=== PATIENT | female | born 1980 | race Caucasian/White ===

== ENCOUNTER 2018-02-24 01:41 | Emergency (ER) | payer OTHER ==
[~2018-02-24] VITALS: Ht 165.1 cm; Wt 67.2 kg
[2018-02-24 01:53] VITALS: Ht 165.1 cm; Wt 67.2 kg
[2018-02-24 02:51] LABS: BASOPHIL % 0.1 % (0-2); PLATELET COUNT 231 x10^3mcL (130-400)
[2018-02-24 02:54] LABS: CALCIUM 8.5 mg/dL (8.5-10.1); CARBON DIOXIDE 27.2 mmol/L (21-32); CREATININE SERUM 1.5 mg/dL (0.6-1.0); POTASSIUM SERUM 3.7 mmol/L (3.5-5.1)
[2018-02-24 02:59] LABS: ALBUMIN 4.1 g/dL (3.4-5.0); BILIRUBIN TOTAL 0.67 mg/dL (0.20-1.00); TOTAL PROTEIN, SERUM 7.9 g/dL (6.4-8.2)
[2018-02-24 04:31] VITALS: BP 136/87
== END 2018-02-24 04:31 | disposition home or self-care (01) ==
LOC: ED 01:41
PROVIDERS: Emergency Medicine
DX: R33.9 Retention of urine, unspecified (principal); N28.9 Disorder of kidney and ureter, unspecified; J45.909 Unspecified asthma, uncomplicated; Z88.8 Allergy status to other drugs, medicaments and biological substances
CPT/HCPCS: J7030

== ENCOUNTER 2018-03-03 04:28 | Emergency (ER) | payer OTHER ==
[~2018-03-03] VITALS: Ht 167.6 cm; Wt 63.3 kg
[2018-03-03 04:37] VITALS: Ht 167.6 cm; Wt 63.3 kg
[2018-03-03 07:02] VITALS: BP 108/70
== END 2018-03-03 07:02 | disposition home or self-care (01) ==
LOC: ED 04:28
DX: R33.9 Retention of urine, unspecified (principal); Z88.8 Allergy status to other drugs, medicaments and biological substances